=== PATIENT | female | born 1955 | race Caucasian/White ===

== ENCOUNTER 2017-08-19 17:19 | Emergency (ER) | payer OTHER ==
--- NOTE | 2017-08-19 17:47 | PDOC ---
History of Present Illness - General History Source: Patient - History of Present Illness Timing/Duration: other Associated Symptoms: denies: chest pain, fever/chills, malaise, nausea/vomiting , shortness of breath, weakness <Kierra GallegoReneMary Anne - Last Filed: 08/21/17 09:11> <Jenny Amaral - Last Filed: 08/21/17 09:48> - General Chief Complaint: Irregular Heart Beat Stated Complaint: AFIB Time Seen by Provider: 08/19/17 17:34 Past History <Kierra GallegoReneMary Anne - Last Filed: 08/21/17 09:11> <Jenny Amaral - Last Filed: 08/21/17 09:48> - Past Medical History Allergies/Adverse Reactions: Allergies Allergy/AdvReac Type Severity Reaction Status Date / Time metronidazole [From Flagyl] Allergy Verified 08/19/17 17:56 Review of Systems - Review of Systems Constitutional: No: Chills, Fever Respiratory: No: Shortness of Breath Cardiac (ROS): Yes: Palpitations. No: Chest Pain, Lightheadedness, Syncope <Kierra GallegoReneMary Anne - Last Filed: 08/21/17 09:11> *Physical Exam - Physical Exam General Appearance: Yes: Appropriately Dressed. No: Apparent Distress HEENT: positive: Normal Voice Neck: positive: Supple Respiratory/Chest: positive: Lungs Clear, Normal Breath Sounds. negative: Respiratory Distress Cardiovascular: positive: Regular Rate, S1, S2 Gastrointestinal/Abdominal: positive: Soft. negative: Tender Extremity: positive: Normal Inspection Integumentary: positive: Dry, Warm Neurologic: positive: Fully Oriented, Alert, Normal Mood/Affect <Robert Gallego - Last Filed: 08/21/17 09:11> - Vital Signs Last Vital Signs Temp Pulse Resp BP Pulse Ox 97.6 F 73 18 128/72 100 08/19/17 20:58 08/19/17 20:58 08/19/17 20:58 08/19/17 20:58 08/19/17 20:58 <Jenny Amaral - Last Filed: 08/21/17 09:48> Heart Score/ECG Review - ECG Intrepretation Comment:: 08/19/17 18:17 Twelve-lead EKG was performed and reviewed by me. There is normal sinus rhythm with a normal rate. The axis is normal. The intervals are normal. There are no ST or T wave abnormalities. Impression: Normal twelve-lead EKG <Robert Gallego - Last Filed: 08/21/17 09:11> ED Treatment Course - LABORATORY CBC & Chemistry Diagram: 08/19/17 17:19 08/19/17 17:19 - RADIOLOGY Radiology Studies Ordered: Category Date Time Status CHEST X-RAY PORTABLE* [RAD] Stat Radiology 08/19/17 17:35 Ordered <Robert Gallego - Last Filed: 08/21/17 09:11> - LABORATORY CBC & Chemistry Diagram: 08/19/17 17:19 08/19/17 17:19 - ADDITIONAL ORDERS Additional order review: 08/19/17 17:19 RBC 5.08 MCV 87.2 MCHC 33.4 RDW 13.3 MPV 9.1 Neutrophils % 61.5 Lymphocytes % 28.6 Monocytes % 5.8 Eosinophils % 3.2 Basophils % 0.9 <Jenny Amaral - Last Filed: 08/21/17 09:48> Medical Decision Making - Medical Decision Making 08/19/17 17:43 61-year-old female, history of hyperlipidemia, on meds, PNA, here with palpitations that started at 1 PM while she was at work and resolved after 2 hours. Patient states she also had a sensation of her heart skipping beats. No dizziness, weakness, syncope, chest pain or shortness of breath. No history of similar episode and no history of anxiety. States she went to [facility] urgent care in [facility] and had EKG done and told she was in A.fib and sent to ED. Patient has copy of EKG on her person showing rapid A.fib to 113. EKG done at triage in ED showed normal sinus rhythm at 68 bpm See exam New onset afib ([id number] score 1) Spontaneously terminated Stable w/ NSR on monitor in ED -cxr -labs -cards c/s -dispo pending 08/19/17 18:[address] Childress of cardiology, states since patient spontaneously converted back to sinus rhythym, if labs and chest x-ray unremarkable, pt can be discharged to follow up with cardiology this week. Will give referral 08/19/17 19:00 Pt signed out to SHOSHANA Selby at this point <Robert Gallego - Last Filed: 08/21/17 09:11> *DC/Admit/Observation/Transfer <Robert Gallego - Last Filed: 08/21/17 09:11> - Attestations Physician Attestion: I reviewed the case with the mid-level practitioner and agree with the mid- level practitioner's assessment, diagnosis and disposition. <Jenny Amaral - Last Filed: 08/21/17 09:48> Diagnosis at time of Disposition: Afib - Discharge Dispostion Disposition: HOME - Referrals Referrals: Aly Lau [Primary Care Provider] - Vasquez Martin MD [Staff Physician] - - Patient Instructions Printed Discharge Instructions: Atrial Fibrillation Additional Instructions: It appears that your palpitations was due to an arrhythmia called atrial fibrillation that spontaneously converted back to normal sinus rhythm. Your ekg , cxr and labs were normal in ED. Please contact Dr. Martin for appointment this week. Also f/u with your PMD. In the interim if symptoms recur, return to ED immediately
--- NOTE | 2017-08-19 17:47 | PDOC ---
ED Treatment Course - LABORATORY CBC & Chemistry Diagram: 08/19/17 17:19 08/19/17 17:19 Medical Decision Making - Medical Decision Making 08/19/17 17:45 This is a 61-year-old female presented to emergency department from the urgent care due to palpitations. She was apparently seen at [facility], told that her EKG showed atrial fibrillation. Upon arrival to the emergency department, her EKG is a sinus rhythm, no signs of ischemia. Patient has no symptoms at this time. No chest pain. We were initially unable to find this patient's paperwork from [facility] Once located, EKG does indeed show Afib GENERAL: The patient is in no acute distress. LUNGS: Breath sounds equal, clear to auscultation bilaterally. No wheezes, and no crackles. HEART:Regular rate and rhythm, normal S1 and S2 without murmur, rub or gallop. ABDOMEN: Soft, nontender, normoactive bowel sounds. No guarding, no rebound. No masses palpable. EXTREMITIES: Normal range of motion, no edema. No clubbing or cyanosis. No erythema, or tenderness. Will discharged home Patient's chads 2 vasc score is 1 No need to anticoagulate Will discharge to home Follow up with PMD and Cards as an outpatient This was reviewed with Cardiology, they agree with this plan Clinical impression: palpitations, initial presentation Paroxysmal Afib, initial presentation Pt seen by Midlevel Provider under my direct supervision Pt interviewed and examined Ancillary studies reviewed I agree with plan as outlined by LONNIE Mejia *DC/Admit/Observation/Transfer Diagnosis at time of Disposition: Afib - Discharge Dispostion Disposition: HOME - Referrals Referrals: Aly Lau [Primary Care Provider] - Vasquez Martin MD [Staff Physician] - - Patient Instructions Printed Discharge Instructions: Atrial Fibrillation Additional Instructions: It appears that your palpitations was due to an arrhythmia called atrial fibrillation that spontaneously converted back to normal sinus rhythm. Your ekg , cxr and labs were normal in ED. Please contact Dr. Martin for appointment this week. Also f/u with your PMD. In the interim if symptoms recur, return to ED immediately - Post Discharge Activity
[2017-08-19 17:56] VITALS: BMI 45.7
[2017-08-19 18:28] LABS: BASO % 0.9 % (0-2.0); EOS % 3.2 % (0-4.5); HEMATOCRIT 44.3 % (32.4-45.2); HEMOGLOBIN 14.8 GM/dL (10.7-15.3); LYMPH % 28.6 % (8-40); MCH 29.1 pg (25.7-33.7); MCHC 33.4 g/dl (32.0-36.0); MEAN CELL VOLUME 87.2 fl (80-96); MEAN PLT VOLUME 9.1 fl (7.5-11.1); MONO % 5.8 % (3.8-10.2); NEUT % 61.5 % (42.8-82.8); PLATELET COUNT 180 K/MM3 (134-434); RBC 5.08 M/mm3 (3.60-5.2); RDW 13.3 % (11.6-15.6); WHITE BLOOD COUNT 7.3 K/mm3 (4.0-10.0)
[2017-08-19 19:09] LABS: ALBUMIN 3.7 g/dl (3.4-5.0); ANION GAP 10 (8-16); BILIRUBIN,TOTAL 0.4 mg/dL (0.2-1.0); BLOOD UREA NITROGEN 15 mg/dL (7-18); CHLORIDE 110 mmol/L (98-107); CO2 23 mmol/L (21-32); CREATININE 0.6 mg/dL (0.55-1.02); GLUCOSE,RANDOM 95 mg/dL (74-106); POTASSIUM 3.7 mmol/L (3.5-5.1); SGOT/AST 15 U/L (15-37); SGPT/ALT 26 U/L (12-78); SODIUM 143 mmol/L (136-145); TOT PROT 7.2 g/dl (6.4-8.2)
[2017-08-19 19:11] LABS: ALK PHOS 86 U/L (45-117)
--- NOTE | 2017-08-19 19:21 | PDOC ---
*Physical Exam - Vital Signs Last Vital Signs Temp Pulse Resp BP Pulse Ox 97.7 F 68 18 127/74 100 08/19/17 17:20 08/19/17 17:20 08/19/17 17:20 08/19/17 17:20 08/19/17 17:20 - Physical Exam General Appearance: Yes: Appropriately Dressed Respiratory/Chest: positive: Lungs Clear, Normal Breath Sounds Cardiovascular: positive: Regular Rhythm, Regular Rate Gastrointestinal/Abdominal: positive: Normal Bowel Sounds, Soft. negative: Tender Extremity: positive: Normal Capillary Refill, Normal Inspection Heart Score/ECG Review - ECG Intrepretation Rhythm: Regular Rhythm Comment:: 08/19/17 17:31 NSR : 68 BPM ED Treatment Course - LABORATORY CBC & Chemistry Diagram: 08/19/17 17:19 08/19/17 17:19 - ADDITIONAL ORDERS Additional order review: Laboratory Results 08/19/17 17:19 TSH 3.29 08/19/17 17:19 RBC 5.08 MCV 87.2 MCHC 33.4 RDW 13.3 MPV 9.1 Neutrophils % 61.5 Lymphocytes % 28.6 Monocytes % 5.8 Eosinophils % 3.2 Basophils % 0.9 - RADIOLOGY Chest X-Ray Result: No Infiltrates Medical Decision Making - Medical Decision Making 08/19/17 19:29 Patient currently asymptomatic in NSR. HRT 60-64. family history of AFib (mother ). stressed the importance of outpatient follow up and strict return precautions. 08/19/17 19:30 *DC/Admit/Observation/Transfer Diagnosis at time of Disposition: Afib - Referrals Referrals: Aly Lau [Primary Care Provider] - Vasquez Martin MD [Staff Physician] - - Patient Instructions Printed Discharge Instructions: Atrial Fibrillation Additional Instructions: It appears that your palpitations was due to an arrhythmia called atrial fibrillation that spontaneously converted back to normal sinus rhythm. Your ekg , cxr and labs were normal in ED. Please contact Dr. Martin for appointment this week. Also f/u with your PMD. In the interim if symptoms recur, return to ED immediately - Post Discharge Activity
[2017-08-19 21:00] VITALS: BP 128/72; PULSE 73; TEMP 97.6
--- NOTE | 2017-08-20 11:52 | EKG ---
Test Reason : Blood Pressure : / mmHG Vent. Rate : 068 BPM Atrial Rate : 068 BPM P-R Int : 172 ms QRS Dur : 076 ms QT Int : 370 ms P-R-T Axes : 009 -10 000 degrees QTc Int : 393 ms POOR DATA QUALITY, INTERPRETATION MAY BE ADVERSELY AFFECTED NORMAL SINUS RHYTHM NORMAL ECG NO PREVIOUS ECGS AVAILABLE Confirmed by NATHANAEL SINGH MD ([id number]) on 08/20/2017 11:51:39 AM Referred By: Confirmed By:NATHANAEL SINGH MD
== END 2017-08-19 21:00 | disposition home or self-care (01) ==
LOC: JER 17:19
DX: I48.91 Unspecified atrial fibrillation (principal)
CPT/HCPCS: 36415; 71045-TC-FY; 80053; 82550; 84443; 84484; 85025; 93005; 93010; 99281-25